=== PATIENT | female | born 1980 | race Caucasian/White ===

== ENCOUNTER 2020-10-07 15:53 | Emergency (ER) | payer MEDICAID, OTHER ==
[~2020-10-07] VITALS: Ht 172.7 cm; Wt 4.5 kg
[2020-10-07] MEDS ORDERED: methylPREDNISolone SOD SUCC 125 MG/2 ML VL IM ONE (16:45)
[2020-10-07] MEDS ORDERED: KETOROLAC TROMETH 60MG/2ML VIAL IM ONE (16:45)
[2020-10-07 17:06] VITALS: BP 126/79
== END 2020-10-07 17:36 | disposition home or self-care (01) ==
LOC: ER 15:53
DX: M54.41 Lumbago with sciatica, right side (principal); X50.1XXA Overexertion from prolonged static or awkward postures, initial encounter; Y93.89 Activity, other specified; Y92.89 Other specified places as the place of occurrence of the external cause; Y99.8 Other external cause status
CPT/HCPCS: 96372; 99284; J1885; J2930

== ENCOUNTER 2020-10-23 11:29 | Emergency (ER) | payer MEDICAID ==
[~2020-10-23] VITALS: Ht 172.7 cm; Wt 68.0 kg
[2020-10-23 15:59] VITALS: BP 110/77
[2020-10-23] MEDS ORDERED: KETOROLAC TROMETH 60MG/2ML VIAL IM ONE (16:30)
== END 2020-10-23 17:19 | disposition home or self-care (01) ==
LOC: ER 11:29
DX: M51.36 Other intervertebral disc degeneration, lumbar region (principal); M54.16 Radiculopathy, lumbar region
CPT/HCPCS: 96372; 99283; J1885

== ENCOUNTER 2023-05-30 21:15 | Inpatient (IN) | payer MEDICAID ==
[~2023-05-30] VITALS: Ht 152.4 cm; Wt 72.5 kg
[~2023-05-30 21:15] MED LIST: ONDANSETRON HCL 4 MG/2 ML VIAL ONE
[2023-05-30] MEDS ORDERED: ANGIOMAX 250 MG VIAL IV ONE (21:42)
[2023-05-30] MEDS ORDERED: MIDAZOLAM HCL 2MG/2ML 2ml VIAL (1mg/ml) ONE (21:43)
[2023-05-30] MEDS ORDERED: VERAPAMIL 2.5MG/ML INJ 2ML VIAL IV ONE (21:43)
[2023-05-30] MEDS ORDERED: SODIUM CHL 0.9% 50 ML ONE (21:43)
[2023-05-30] MEDS ORDERED: fentaNYL CITRATE 100 MCG/2 ML VL ONE (21:43)
[2023-05-30] MEDS ORDERED: HEPARIN SODIUM (PORCINE) 5000 UNITS/ML 1ML VIAL ONE (21:43)
[2023-05-30] MEDS ORDERED: IODIXANOL 320MG/ML 100ML BTL IV ONE (21:43)
[2023-05-31] VITALS (7 sets, daily range): BP systolic 90–106; BP diastolic 53–64; PULSE 70–98; RESP 16–20; TEMP 97.8–98.8; O2SAT 93–99
[2023-05-31] MEDS ORDERED: ONDANSETRON HCL 4 MG/2 ML VIAL ONE (00:30)
[2023-05-31] MEDS ORDERED: LORazepam 2MG/ML-1ML VIAL ONE (00:51)
[2023-05-31] MEDS ORDERED: MORPHINE SULFATE INJ 2 MG/ml SYRG IV PRN (03:30)
[2023-05-31] MEDS ORDERED: ACETAMINOPHEN 325 MG TAB PO PRN (03:30)
[2023-05-31] MEDS ORDERED: HYDROcodone-ACET 5/325MG TAB PO PRN (03:30)
[2023-05-31] MEDS ORDERED: NITROGLYCERIN 0.4 MG SL TAB SL PRN (03:30)
[2023-05-31] MEDS ORDERED: AMIO200T13 PO (03:35)
[2023-05-31] MEDS ORDERED: FURO40TA4 PO (03:35)
[2023-05-31] MEDS ORDERED: METO25TA93 PO (03:35)
[2023-05-31] MEDS ORDERED: MIDO2.5T15 PO (03:35)
[2023-05-31 03:38] LABS: Basophils # (auto) 0.1 10 ^3/uL (0-0.2); Basophils % (auto) 0.8 % (0.0-2.0); Eosinophils # (auto) 0.1 10 ^3/uL (0-0.8); Eosinophils % (auto) 0.8 % (0.0-7.0); Hematocrit 35.3 % (36.0-46.0); Lymphocytes # (auto) 4.5 10 ^3/uL (0.4-5.4); Lymphocytes % (auto) 37.7 % (10.0-50.0); Mean Corpuscular Hemoglobin 27.6 pg (28.0-32.0); Mean Corpuscular Hgb Conc. 31.1 g/dL (32.0-36.0); Mean Corpuscular Volume 88.9 fL (80.0-100.0); Monocytes # (auto) 0.9 10 ^3/uL (0-1.3); Monocytes % (auto) 7.5 % (0.0-12.0); Neutrophils # (auto) 6.3 10 ^3/uL (1.6-8.6); Neutrophils % (auto) 53.2 % (37.0-80.0); Nucleated Red Blood Cells % 0.1 %; Red Blood Cells 3.97 10^6/uL (4.0-5.20); Red Cell Distribution Width 16.2 % (11.8-14.3); White Blood Cell 11.9 10^3/uL (4.4-10.8)
[2023-05-31 04:06] LABS: Alanine Aminotransferase 29 U/L (7-40); Albumin 4.1 g/dL (3.2-4.8); Alkaline Phosphatase 67 U/L (46-116); Anion Gap 8 (5-15); Aspartate Aminotransferase 23 U/L (13-40); BUN/Creatinine Ratio 21.5 (10.0-20.0); Bilirubin, Total 0.2 mg/dL (0.2-1.0); Blood Urea Nitrogen 20 mg/dL (9-23); Calcium 8.8 mg/dL (8.5-10.1); Carbon Dioxide 22 mmol/L (20-30); Chloride 108 mmol/L (98-107); Cholesterol 165 mg/dL (< 200); Glucose 116 mg/dL (74-106); HDL Cholesterol 44 mg/dL (40-59); LDL Cholesterol 106 mg/dL (< 100); Potassium 3.9 mmol/L (3.5-5.1); Sodium 138 mmol/L (136-145); Total Protein 6.7 g/dL (5.7-8.2); Triglycerides 168 mg/dL (< 150)
[2023-05-31 09:08] LABS: Hepatitis B Surface Antigen Negative (Negative)
[2023-05-31 09:29] LABS: Hepatitis C Antibody Negative (Negative)
[2023-05-31] MEDS: PANTOPRAZOLE 40 MG TAB PO SCH (09:44)
[2023-05-31] MEDS: ATORVASTATIN 20 MG TAB PO SCH (09:45)
[2023-05-31] MEDS: ONDANSETRON HCL 4 MG/2 ML VIAL IV PRN (09:45)
[2023-05-31] MEDS: LORazepam 2MG/ML-1ML VIAL IV PRN (09:58)
[2023-05-31] MEDS: CLOPIDOGREL BISULFATE 75 MG TAB PO ONE (13:30)
[2023-05-31] MEDS: LACTULOSE 20Gm/30ML SOLN PO ONE (13:30)
[2023-05-31] MEDS: MORPHINE SULFATE INJ 2 MG/ml SYRG IV PRN (15:02)
[2023-05-31] MEDS: RIVAROXABAN 20 MG TAB PO SCH (17:52)
[2023-05-31] MEDS: HEPARIN SODIUM (PORCINE) 5000 UNITS/ML 1ML VIAL ONE (20:54)
[2023-05-31] MEDS: MORPHINE SULFATE 4 MG/ML SYR/VIAL ONE (20:55)
[2023-05-31] MEDS: METOPROLOL TARTRATE 25 MG TAB PO SCH (22:00)
[2023-05-31] MEDS: AMIODARONE HCL 200 MG TAB PO SCH (22:00)
[2023-05-31] MEDS ORDERED: SACUBITRIL-VALSARTAN 24mg/26mg TAB PO SCH (22:00)
[2023-06-01 00:53] VITALS: BP 99/54; PULSE 90; RESP 16; TEMP 98; O2SAT 98
[2023-06-01 06:44] LABS: Basophils # (auto) 0.1 10 ^3/uL (0-0.2); Basophils % (auto) 0.5 % (0.0-2.0); Eosinophils # (auto) 0 10 ^3/uL (0-0.8); Eosinophils % (auto) 0.4 % (0.0-7.0); Hemoglobin 10.3 g/dL (12.2-16.2); Mean Corpuscular Hemoglobin 28.4 pg (28.0-32.0); Mean Corpuscular Hgb Conc. 32.3 g/dL (32.0-36.0); Monocytes % (auto) 8.2 % (0.0-12.0); Neutrophils # (auto) 8.6 10 ^3/uL (1.6-8.6); Neutrophils % (auto) 73.9 % (37.0-80.0); Red Blood Cells 3.64 10^6/uL (4.0-5.20); Red Cell Distribution Width 15.8 % (11.8-14.3); White Blood Cell 11.7 10^3/uL (4.4-10.8)
[2023-06-01 07:02] LABS: Alanine Aminotransferase 60 U/L (7-40); Albumin 3.4 g/dL (3.2-4.8); Alkaline Phosphatase 38 U/L (46-116); Anion Gap 6 (5-15); Aspartate Aminotransferase 176 U/L (13-40); Bilirubin, Total 0.5 mg/dL (0.2-1.0); Blood Urea Nitrogen 16 mg/dL (9-23); Calcium 8.3 mg/dL (8.7-10.4); Carbon Dioxide 24 mmol/L (20-30); Chloride 103 mmol/L (98-107); Glucose 124 mg/dL (74-106); Potassium 4.2 mmol/L (3.5-5.1); Total Protein 5.4 g/dL (5.7-8.2)
[2023-06-01 07:12] LABS: Sodium 133 mmol/L (136-145)
[2023-06-01 08:15] VITALS: BP 95/49; PULSE 89; PULSE 93; RESP 18; TEMP 97.8
[2023-06-01 09:00] VITALS: BP 95/49; PULSE 89; RESP 12; TEMP 97.8; O2SAT 90
[2023-06-01] MEDS ORDERED: ASPirin 81 mg TAB PO SCH (10:00)
[2023-06-01] MEDS: EMPAGLIFLOZIN 10 MG TAB PO SCH (10:54)
[2023-06-01] MEDS: CLOPIDOGREL BISULFATE 75 MG TAB PO SCH (10:54)
[2023-06-01] MEDS: LISINOPRIL 5 MG TAB PO SCH (10:56)
[2023-06-01] MEDS ORDERED: LISI-275 PO (12:06)
[2023-06-01] MEDS ORDERED: [UNRECOGNIZED DRUG - CODE] MT (12:06)
[2023-06-01] MEDS ORDERED: RIV15T PO (12:06)
[2023-06-01] MEDS ORDERED: ASPI-543 PO (12:06)
[2023-06-01] MEDS ORDERED: ATOR10TA52 PO (12:06)
[2023-06-01] MEDS ORDERED: FUROSEMIDE 20 MG TAB PO SCH (12:30)
[2023-06-01] MEDS ORDERED: MIDODRINE HCL 10 MG TAB PO SCH (12:30)
[2023-06-01] MEDS ORDERED: LACTULOSE 20Gm/30ML SOLN PO SCH (12:30)
[2023-06-01] MEDS ORDERED: MET25T PO (12:32)
[2023-06-01] MEDS ORDERED: CLOP75TA70 PO (12:32)
[2023-06-01] MEDS ORDERED: MID10T PO (12:32)
[2023-06-01 13:00] VITALS: BP 100/60; PULSE 87; RESP 14; TEMP 99.7; O2SAT 91
[2023-06-01 16:44] VITALS: BP 100/60; PULSE 89; RESP 19; TEMP 97.9; O2SAT 91
[2023-06-02] MEDS ORDERED: FUROSEMIDE 40 MG TAB PO SCH (10:00)
== END 2023-06-01 17:59 | disposition home or self-care (01) | DRG 174 ==
LOC: ER 21:15 → TELE-WESTW 05-31 03:31 → TELE 05-31 03:31 → TELE-WESTW 05-31 04:25
PROVIDERS: ADMIT Nurse Practitioner; ATTEND Nurse Practitioner
PROC: 02703ZZ Dilation of Coronary Artery, One Artery, Percutaneous Approach (ICD-10-PCS; principal; 2023-05-30)
PROC: 4A023N7 Measurement of Cardiac Sampling and Pressure, Left Heart, Percutaneous Approach (ICD-10-PCS; 2023-05-30)
PROC: B211YZZ Fluoroscopy of Multiple Coronary Arteries using Other Contrast (ICD-10-PCS; 2023-05-30)
DX: I21.19 ST elevation (STEMI) myocardial infarction involving other coronary artery of inferior wall (principal); I50.23 Acute on chronic systolic (congestive) heart failure; I25.10 Atherosclerotic heart disease of native coronary artery without angina pectoris; F15.10 Other stimulant abuse, uncomplicated; I48.0 Paroxysmal atrial fibrillation; F41.9 Anxiety disorder, unspecified; I25.5 Ischemic cardiomyopathy; E78.5 Hyperlipidemia, unspecified; I25.2 Old myocardial infarction; Z87.891 Personal history of nicotine dependence; Z98.61 Coronary angioplasty status
CPT/HCPCS: 36415; 71045; 74018; 80053; 80061; 83690; 83880; 84484; 85025; 86803; 86850; 86900; 86901; 87081; 87340; 92941; 93005; 93306; 93458; 99152; 99291; G0378; J2405